=== PATIENT | female | born 1985 | race Caucasian/White ===

== ENCOUNTER 2017-01-01 13:06 | Emergency (ER) | payer BC, OTHER ==
[2017-01-01] MEDS ORDERED: SODIUM CHLORIDE 0.9% 1,000 ML IV STA (13:33)
[2017-01-01] MEDS ORDERED: ACETAMINOPHEN IVPB STA (13:48)
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
[2017-01-01 14:41] LABS: Basophils % (A) 1 %; CH 30.3; CHCM 34.1; Eosinophils # (A) 0.1 k/uL (0-0.7); Eosinophils % (A) 1 %; HCT 38.1 % (34.0-46.0); HDW 2.46; HGB 12.8 gm/dL (11.4-16.0); Luc % (Auto) 2; Lymphocytes # (A) 0.8 k/uL (1.0-4.8); Lymphocytes % (A) 12 %; MCH 29.9 pg (25.0-35.0); MCHC 33.5 g/dL (31.0-37.0); MCV 89.2 fL (80.0-100.0); Mean Platelet Volume 7.1; Monocytes # (A) 0.4 k/uL (0-1.0); Monocytes % (A) 7 %; Neutrophils # (A) 5.4 k/uL (1.3-7.7); Neutrophils % (A) 78 %; RBC 4.27 m/uL (3.80-5.40); RDW 13.6 % (11.5-15.5); WBC 6.9 k/uL (3.8-10.6); WBC (Perox) 7.43
[2017-01-01 15:08] LABS: ALT 25 U/L (9-52); AST 22 U/L (14-36); Alkaline Phosphatase 48 U/L (38-126); Anion Gap 8 mmol/L; Blood Urea Nitrogen 9 mg/dL (7-17); Calcium 9.5 mg/dL (8.4-10.2); Carbon Dioxide 24 mmol/L (22-30); Chloride 110 mmol/L (98-107); Glucose 85 mg/dL (74-99); Non-African American GFR(MDRD) >60 (>60 ml/min/1.73 sqM); Potassium 3.9 mmol/L (3.5-5.1); Sodium 142 mmol/L (137-145); Total Bilirubin 0.5 mg/dL (0.2-1.3); Total Protein 6.6 g/dL (6.3-8.2)
[2017-01-01 16:05] VITALS: RESP 18
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
--- NOTE | 2017-01-01 16:15 | XR ---
Right shoulder HISTORY: Trauma and pain 3 views of the right shoulder No comparisons Bone mineralization, joint spaces and alignment are maintained. There are overlying cardiac leads. IMPRESSION: No fracture or dislocation.
[2017-01-01] MEDS ORDERED: KETOROLAC 30 MG/ML 1 ML VIAL IVP SCH ×2 (16:21→18:00)
[2017-01-01] MEDS ORDERED: KETOROLAC 30 MG/ML 1 ML VIAL IVP STA (16:29)
[2017-01-01 17:06] VITALS: BP 151/77; PULSE 71; TEMP 98.3
== END 2017-01-01 17:05 | disposition home or self-care (01) ==
LOC: EC 13:06
DX: S16.1XXA Strain of muscle, fascia and tendon at neck level, initial encounter (principal); S40.011A Contusion of right shoulder, initial encounter; R00.0 Tachycardia, unspecified; R06.4 Hyperventilation; R68.84 Jaw pain; Z87.891 Personal history of nicotine dependence; V43.52XA Car driver injured in collision with other type car in traffic accident, initial encounter
CPT/HCPCS: 99285; 96365; 96375; 36415; 93005; 80053; 85025; 70110; 71020; 73030; 72125; 70450; J1885; J0131

== ENCOUNTER → 2020-05-22 | Outpatient (CLI) | payer BC | END | disposition home or self-care (01) | LOC: LABWHC1 15:24 | PROVIDERS: ATTEND Family Medicine | DX: Z03.818 Encounter for observation for suspected exposure to other biological agents ruled out (principal) | CPT/HCPCS: U0003; C9803 ==

== ENCOUNTER → 2022-07-20 | Outpatient (CLI) | payer BC ==
[2022-07-20 16:55] LABS: Basophils % (A) 1.7 %; Eosinophils # (A) 0.18 X 10*3/uL (0.04-0.35); Eosinophils % (A) 3.1 %; HCT 36.1 % (37.2-46.3); HGB 12.1 g/dL (12.0-15.0); Immature Grans, Automated 0.2 %; Lymphocytes # (A) 1.19 X 10*3/uL (0.90-5.00); Lymphocytes % (A) 20.8 %; MCH 29.7 pg (27.0-32.0); MCHC 33.5 g/dL (32.0-37.0); MCV 88.7 fL (80.0-97.0); Mean Platelet Volume 10.5 fL (9.5-12.2); Monocytes # (A) 0.47 X 10*3/uL (0.20-1.00); Monocytes % (A) 8.2 %; NRBC Per 100 WBC 0 /100 WBCS (0.0-0.0); Neutrophils # (A) 3.77 X 10*3/uL (1.80-7.70); Platelet Count 292 X 10*3/uL (140-440); RBC 4.07 X 10*6/uL (4.10-5.20); RDW 12.3 % (11.5-14.5); WBC 5.72 X 10*3/uL (4.50-10.00)
== END | disposition home or self-care (01) ==
LOC: LABPAT 10:20
PROVIDERS: ATTEND Obstetrics & Gynecology
DX: Z01.812 Encounter for preprocedural laboratory examination (principal); R87.613 High grade squamous intraepithelial lesion on cytologic smear of cervix (HGSIL)
CPT/HCPCS: 85025

== ENCOUNTER 2022-07-23 06:28 | Day surgery (SDC) | payer BC ==
[2022-07-19 08:50] VITALS: BMI 17.2
[~2022-07-23 06:28] MED LIST: DEXAMETHASONE SOD PHOSPHATE 4 MG/ML 1 ML VIAL IV ONE; LIDOCAINE 1% (10MG/ML) FOR IV START INTRADERMA PRN; ONDANSETRON 4 MG/2 ML VIAL IVP ONE; Pre Op ABX Message 1 EACH MISC MISCELLANE ONE; SCOPOLAMINE 1 MG/72 HR PATCH TRANSDERM ONE
[2022-07-23] MEDS: LACTATED RINGERS 1,000 ML IV SCH ×2 (06:59→09:08)
[2022-07-23] MEDS ORDERED: MIDAZOLAM 2 MG/2 ML VIAL ONE (07:51)
[2022-07-23] MEDS ORDERED: fentaNYL (PF) 50 MCG/ML 2 ML AMP ONE (07:51)
[2022-07-23] MEDS ORDERED: PROPOFOL 10 MG/ML 20 ML VIAL IV ONE (07:51)
[2022-07-23] MEDS ORDERED: LIDOCAINE 2% INJ 20 MG/ML (2 ML VIAL) ONE (07:51)
[2022-07-23 08:34] VITALS: RESP 16; TEMP 97.4
[2022-07-23] MEDS ORDERED: KETOROLAC 15 MG/ML 1 ML VIAL IVP ONE (08:35)
[2022-07-23] MEDS: HYDROmorphone 0.5 MG/0.5 ML SYRINGE IVP PRN ×2 (08:35→08:55)
--- NOTE | 2022-07-23 08:36 | P.OP ---
Date of Procedure: 07/23/22 Preoperative Diagnosis: HSIL/BRANDAN III Postoperative Diagnosis: Same Procedure(s) Performed: Loop Electrosurgical Excision Procedure Implants: None Anesthesia: CINTHIA Surgeon: Leighann Gonzalez Tape Calender #1: Deepti Felder Estimated Blood Loss (ml): 5 IV fluids (ml): 400 Urine output (ml): 0 Pathology: other (Portion of ectocervix, portion of endocervix, and endocervical currettings) Condition: stable Disposition: same day Indications for Procedure: The patient is a 36 year old with a history of an abnormal pap smear. 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 She was consented for LEEP in the operating room. Risks of bleeding, infection, and cervical insufficiency were discussed. The patient is status post a tubal ligation and has completed child bearing. All questions were answered and the patient desired to proceed. Operative Findings: Portion of ectocervix, portion of endocervix, and endocervical curretings were satisfactorily removed. These were sent for pathology. Description of Procedure: The patient was taken to the OR where general anesthesia was administered without difficulty. She was placed in the dorsal lithotomy position. The patient was then prepared and draped in the normal sterile fashion. A large speculum was placed in the vagina. The large loop electrode was used to excise a standard cone biopsy containing the ectocervix and specimen was placed on a Telfa pad for pathology. A smaller loop electrode was bent to take a deeper portion of the endocervix, placed on a Telfa pad and sent for pathology. Endocervical currettings were then collected at the end of the case for pathology. The bed of the excised cervical tissue along the cervix was cauterized using the roller ball. Excellent hemostasis was noted after application of Monsel's Solution. All instruments were removed from vagina. The patient tolerated the procedure well without complication and was taken to the recovery room in stable condition.
[2022-07-23 09:43] VITALS: BP 133/88; PULSE 76
== END 2022-07-23 10:21 | disposition home or self-care (01) ==
LOC: OR 06:28
PROVIDERS: ATTEND Obstetrics & Gynecology
DX: R87.613 High grade squamous intraepithelial lesion on cytologic smear of cervix (HGSIL) (principal); B97.7 Papillomavirus as the cause of diseases classified elsewhere; F90.9 Attention-deficit hyperactivity disorder, unspecified type; F10.10 Alcohol abuse, uncomplicated; F12.20 Cannabis dependence, uncomplicated; Z80.3 Family history of malignant neoplasm of breast; Z98.890 Other specified postprocedural states
CPT/HCPCS: 81025; 88305; 88307; 57460; J2250; J1100; J2405; J3010; J1885; J2704; J1170; J2001